=== PATIENT | male | born 1990 | race Caucasian/White ===

== ENCOUNTER 2018-04-19 13:19 | Emergency (ER) | payer OTHER ==
[~2018-04-19] VITALS: Ht 180.3 cm; Wt 88.6 kg
[2018-04-19 13:26] VITALS: BP 148/72; TEMP 98.5
[2018-04-19 14:45] VITALS: PULSE 87
== END 2018-04-19 14:46 | disposition home or self-care (01) ==
LOC: COL.ER 13:19
DX: S50.01XA Contusion of right elbow, initial encounter (principal); S73.102A Unspecified sprain of left hip, initial encounter; V48.6XXA Car passenger injured in noncollision transport accident in traffic accident, initial encounter; Z98.890 Other specified postprocedural states

== ENCOUNTER 2018-04-20 13:30 | Outpatient (RCR) | payer OTHER | END 2018-07-19 | disposition home or self-care (01) | LOC: WSOH | DX: S29.012A Strain of muscle and tendon of back wall of thorax, initial encounter (principal); S50.01XA Contusion of right elbow, initial encounter; S76.012A Strain of muscle, fascia and tendon of left hip, initial encounter; V86.11XA Passenger of ambulance or fire engine injured in traffic accident, initial encounter; Y93.29 Activity, other involving ice and snow; Y92.411 Interstate highway as the place of occurrence of the external cause; Y99.0 Civilian activity done for income or pay ==

== ENCOUNTER 2019-07-17 21:36 | Emergency (ER) | payer BC ==
[~2019-07-17] VITALS: Ht 180.3 cm; Wt 86.4 kg
[2019-07-17 21:57] VITALS: BP 123/68; PULSE 88; TEMP 98.2
[2019-07-17] MEDS ORDERED: DOXYCYCLINE 10100 MG PO (23:19)
== END 2019-07-17 23:35 | disposition home or self-care (01) ==
LOC: COL.ER 21:36
DX: S51.812A Laceration without foreign body of left forearm, initial encounter (principal); S51.852A Open bite of left forearm, initial encounter; W54.0XXA Bitten by dog, initial encounter

== ENCOUNTER → 2019-09-23 | Outpatient (CLI) | payer BC ==
[~2019-09-23] MED LIST: DOXYCYCLINE 10100 MG PO
== END ==
LOC: COL.LAB 08:00
DX: Z20.828 Contact with and (suspected) exposure to other viral communicable diseases (principal)